=== PATIENT | female | born 1950 | race Caucasian/White ===

== ENCOUNTER 2020-10-03 11:35 | Emergency (ER) | payer OTHER ==
[~2020-10-03 11:35] MED LIST: ANASTROZOLE1 MG PO; ANTIVERT25 MG PO; ASCORBIC ACID500 MG PO; ASPIRIN325 MG PO; BENADRYL25 MG PO; CALCIUM 500-VI1 EACH PO; CELEXA20 MG PO; CLARITIN10 MG PO; COLESTID1 GM PO; COZAAR100 MG PO; COZAAR50 MG PO; DITROPAN5 MG PO; EPITOL200 MG PO; GLUCOTROL10 MG PO; HYDROCODONE-APA1 TAB PO; HYDROCORT TOP; ISOSORBIDE MONO30 MG PO; ISOSORBIDE MONO60 MG PO; KLOR-CON 1010 MEQ PO; LASIX40 MG PO; LEVAQUIN500 MG PO; LIPITOR80 MG PO; LOPRESSOR25 MG PO; NEURONTIN300 MG PO; NITROGLYCERIN0.4 MG SL; NORCO 10-325 T1 EACH PO; PEPCID AC20 MG PO; PHENERGAN25 M1 PO; PLAVIX75 MG PO; SENTRY SENIOR1 EAC2 PO; SYNTHROID75 MCG PO; TELMISARTAN40 MG PO; TOPAMAX50 MG PO; VESICARE10 MG PO; VITAMIN E400 UNI1 PO; ZINC TOP; ZOLOFT50 MG PO; ZYVOX600 MG PO; [UNRECOGNIZED DRUG - OTHER] TOP
[2020-10-03 13:40] LABS: INR 1.1 (0.9-1.2); PROTHROMBIN TIME 13.5 SECONDS (11.4-13.6); PTT 37.6 SECONDS (22.2-34.7)
[2020-10-03 13:41] LABS: BASOPHIL 1.1 % (0-2); EOSINOPHIL 2.9 % (0-7); HCT 29.4 % (37.0-47.0); HGB 8.5 g/dl (12.5-16.0); LYMPHOCYTE 18.1 % (15-48); MCH 22.1 pg (25.0-31.0); MCHC 28.9 g/dL (32.0-36.0); MCV 76.4 fL (78.0-100.0); MONOCYTE 13.8 % (0-12); MPV 11.1 fL (6.0-9.5); NEUTROPHIL 58.4 % (41-80); NRBC 0; PLT 314 K/uL (150-400); RBC 3.85 M/uL (4.20-5.40); RDW 22.5 % (11.5-14.0); WBC 9.1 K/uL (4.0-10.5)
[2020-10-03 13:51] LABS: ALBUMIN 2.9 g/dL (3.4-5.0); BILIRUBIN - TOTAL 0.2 mg/dL (0.2-1.0); BUN/CREAT RATIO (CALC) 39.3 RATIO; C-REACTIVE PROTEIN 5.8 mg/dL (<=0.90); CREATININE 0.28 mg/dL (0.51-0.95); GLOBULIN (CALCULATION) 3.6 g/dL; MAGNESIUM 1.9 mg/dL (1.8-2.4); POTASSIUM 3.8 mmol/L (3.5-5.1); TOTAL PROTEIN 6.5 g/dL (6.4-8.2)
[2020-10-03 13:59] LABS: LACTIC ACID 0.9 mmol/L (0.4-1.9)
[2020-10-03 15:22] LABS: BILIRUBIN NEGATIVE (NEGATIVE); BLOOD NEGATIVE Ery/uL (NEGATIVE); CLARITY CLEAR (CLEAR); COLOR YELLOW (YELLOW); GLUCOSE (U) NORMAL (NORMAL); LEUKOCYTES NEGATIVE Leu/uL (NEGATIVE); NITRITE NEGATIVE (NEGATIVE); PROTEIN NEGATIVE (NEGATIVE); SPECIFIC GRAVITY 1.015 (1.001-1.030); UROBILINOGEN 0.2 mg/dL (0.2-1.0)
[2020-10-03] MEDS ORDERED: CLEOCIN HCL300 MG PO (16:27)
[2020-10-03] MEDS ORDERED: CLEOCIN300 MG PO (16:55)
== END 2020-10-03 17:06 | disposition home or self-care (01) ==
LOC: FER 11:35
PROVIDERS: Emergency Medicine
DX: K11.5 Sialolithiasis (principal); M27.2 Inflammatory conditions of jaws; M17.12 Unilateral primary osteoarthritis, left knee; K12.2 Cellulitis and abscess of mouth; Z79.899 Other long term (current) drug therapy; Z79.82 Long term (current) use of aspirin; Z79.891 Long term (current) use of opiate analgesic
CPT/HCPCS: 36415; 70490; 71250; 73560; 80053; 81003; 83605; 83735; 83880; 84145; 85025; 85610; 85730; 86140; J7030

== ENCOUNTER 2020-10-11 11:53 | Emergency (ER) | payer MEDICARE ==
[~2020-10-11 11:53] MED LIST changes: +CLEOCIN HCL300 MG PO; +CLEOCIN300 MG PO
[2020-10-11 13:39] LABS: BASOPHIL 1.1 % (0-2); EOSINOPHIL 2.5 % (0-7); HCT 31.3 % (37.0-47.0); LYMPHOCYTE 17.2 % (15-48); MCH 21.6 pg (25.0-31.0); MCHC 28.8 g/dL (32.0-36.0); MCV 75.2 fL (78.0-100.0); MONOCYTE 17.3 % (0-12); MPV 10.7 fL (6.0-9.5); NEUTROPHIL 56.7 % (41-80); NRBC 0; PLT 356 K/uL (150-400); RBC 4.16 M/uL (4.20-5.40); RDW 21.9 % (11.5-14.0); WBC 11.7 K/uL (4.0-10.5)
[2020-10-11 14:14] LABS: BUN/CREAT RATIO (CALC) 43.3 RATIO; CREATININE 0.3 mg/dL (0.51-0.95)
== END 2020-10-11 15:46 | disposition home or self-care (01) ==
LOC: FER 11:53
PROVIDERS: Nurse Practitioner Family
DX: R22.1 Localized swelling, mass and lump, neck (principal); R22.0 Localized swelling, mass and lump, head; I10 Essential (primary) hypertension; E11.9 Type 2 diabetes mellitus without complications; Z88.0 Allergy status to penicillin; Z88.2 Allergy status to sulfonamides; Z88.5 Allergy status to narcotic agent; Z88.8 Allergy status to other drugs, medicaments and biological substances; Z91.041 Radiographic dye allergy status; Z91.040 Latex allergy status
CPT/HCPCS: 36415; 80048; 85025; 99283

== ENCOUNTER 2020-10-14 10:44 | Inpatient (IN) | payer MEDICARE, OTHER ==
[2020-10-14 11:37] LABS: BASOPHIL 1.2 % (0-2); EOSINOPHIL 2.2 % (0-7); LYMPHOCYTE 13.9 % (15-48); MCH 21.9 pg (25.0-31.0); MCV 75.4 fL (78.0-100.0); MONOCYTE 14.1 % (0-12); MPV 11.1 fL (6.0-9.5); NEUTROPHIL 63.3 % (41-80); NRBC 0; PLT 380 K/uL (150-400); RBC 4.11 M/uL (4.20-5.40); RDW 21.6 % (11.5-14.0); WBC 12.9 K/uL (4.0-10.5)
[2020-10-14 11:52] LABS: ALBUMIN 2.8 g/dL (3.4-5.0); BILIRUBIN - TOTAL 0.2 mg/dL (0.2-1.0); CREATININE 0.25 mg/dL (0.51-0.95); POTASSIUM 3.7 mmol/L (3.5-5.1); TOTAL PROTEIN 7.8 g/dL (6.4-8.2)
[2020-10-14] MEDS ORDERED: K-DUR20 MEQ PO (21:38)
[2020-10-14] MEDS ORDERED: GABAPENTIN600 MG PO (21:39)
[2020-10-14] MEDS ORDERED: ASPIRIN EC81 MG PO (21:41)
[2020-10-14] MEDS ORDERED: NORCO 5-325 TA1 EACH PO (21:41)
[2020-10-14] MEDS ORDERED: PLAVIX75 MG PO (21:42)
[2020-10-14] MEDS ORDERED: SYNTHROID75 MCG PO (21:43)
[2020-10-14] MEDS ORDERED: GLUCOTROL10 MG PO (21:43)
[2020-10-14] MEDS ORDERED: ISOSORBIDE MONO60 MG PO (21:45)
[2020-10-14] MEDS ORDERED: LIPITOR40 MG PO (21:45)
[2020-10-14] MEDS ORDERED: DITROPAN XL *OUT5 MG PO (21:46)
[2020-10-14] MEDS ORDERED: PEPCID AC20 MG PO (21:46)
[2020-10-14] MEDS ORDERED: MOBIC7.5 MG PO ×2 (21:47→21:49)
[2020-10-14] MEDS ORDERED: BENADRYL25 MG PO (21:49)
[2020-10-14] MEDS ORDERED: TOPROL XL 25MG25 MG PO (21:50)
[2020-10-14] MEDS ORDERED: LASIX40 MG PO (21:51)
[2020-10-14 23:15] LABS: MAGNESIUM 1.7 mg/dL (1.8-2.4); PHOSPHORUS 3.1 mg/dL (2.6-4.7)
--- NOTE | 2020-10-14 23:30 | NUR ---
2005 PT ADMITTD FROM THE ED VIA STRETCHER. PT ORIENTED TO CALL LIGHT AND ROOM.
[2020-10-15 04:39] LABS: BASOPHIL 1.4 % (0-2); EOSINOPHIL 1.6 % (0-7); HCT 29.2 % (37.0-47.0); HGB 8.6 g/dl (12.5-16.0); MCH 21.8 pg (25.0-31.0); MCHC 29.5 g/dL (32.0-36.0); MCV 74.1 fL (78.0-100.0); MPV 10.9 fL (6.0-9.5); NEUTROPHIL 65.7 % (41-80); NRBC 0; PLT 381 K/uL (150-400); RBC 3.94 M/uL (4.20-5.40); RDW 21.4 % (11.5-14.0); WBC 12.9 K/uL (4.0-10.5)
[2020-10-15 04:51] LABS: ALBUMIN 2.6 g/dL (3.4-5.0); BILIRUBIN - TOTAL 0.3 mg/dL (0.2-1.0); BUN/CREAT RATIO (CALC) 14.3 RATIO; CREATININE 0.28 mg/dL (0.51-0.95); GLOBULIN (CALCULATION) 4.3 g/dL; POTASSIUM 3.5 mmol/L (3.5-5.1); TOTAL PROTEIN 6.9 g/dL (6.4-8.2)
[2020-10-16 05:32] LABS: BASOPHIL 0.8 % (0-2); EOSINOPHIL 0.5 % (0-7); HCT 27.3 % (37.0-47.0); HGB 8.1 g/dl (12.5-16.0); MCHC 29.7 g/dL (32.0-36.0); MCV 74.2 fL (78.0-100.0); MPV 10.8 fL (6.0-9.5); NEUTROPHIL 71.1 % (41-80); NRBC 0; PLT 347 K/uL (150-400); RBC 3.68 M/uL (4.20-5.40); RDW 21.3 % (11.5-14.0); WBC 14.2 K/uL (4.0-10.5)
[2020-10-16 05:50] LABS: BUN/CREAT RATIO (CALC) 38.1 RATIO; CREATININE 0.21 mg/dL (0.51-0.95); POTASSIUM 3.8 mmol/L (3.5-5.1)
[2020-10-16] MEDS ORDERED: PLAVIX75 MG PO (09:00)
[2020-10-16] MEDS ORDERED: HYDROCODON-ACE1 EAC2 PO (09:00)
[2020-10-16] MEDS ORDERED: ASPIRIN EC81 MG PO (09:00)
[2020-10-16] MEDS ORDERED: GLUCOTROL10 MG PO (09:00)
[2020-10-16] MEDS ORDERED: SYNTHROID75 MCG PO (09:01)
[2020-10-16] MEDS ORDERED: LASIX40 MG PO (09:01)
[2020-10-16] MEDS ORDERED: LIPITOR40 MG PO (09:02)
[2020-10-16] MEDS ORDERED: PEPCID AC20 MG PO (09:02)
[2020-10-16] MEDS ORDERED: MOBIC7.5 MG PO (09:02)
[2020-10-16] MEDS ORDERED: BENADRYL25 M1 PO (09:03)
[2020-10-16] MEDS ORDERED: 3IN1 COMMODE (09:03)
--- NOTE | 2020-10-16 16:40 | NUR ---
1640 PATIENTS BEDSIDE GLUCOSE IS 438. DR WILKERSON NOTIFIED VIA TELEPHONE, ORDER PLACED FOR 30 UNITS OF REGULAR INSULIN THEN TO RECHECK AT BEDTIME.
[2020-10-17 06:13] LABS: BASOPHIL 1.9 % (0-2); EOSINOPHIL 3.4 % (0-7); HCT 30.2 % (37.0-47.0); HGB 8.9 g/dl (12.5-16.0); LYMPHOCYTE 23.2 % (15-48); MCH 22.1 pg (25.0-31.0); MCHC 29.5 g/dL (32.0-36.0); MCV 74.9 fL (78.0-100.0); MONOCYTE 13.8 % (0-12); MPV 10.5 fL (6.0-9.5); NRBC 0; PLT 372 K/uL (150-400); RBC 4.03 M/uL (4.20-5.40); RDW 21.5 % (11.5-14.0); WBC 10.7 K/uL (4.0-10.5)
[2020-10-17 06:30] LABS: BUN/CREAT RATIO (CALC) 18.5 RATIO; CREATININE 0.27 mg/dL (0.51-0.95); MAGNESIUM 1.6 mg/dL (1.8-2.4); POTASSIUM 3.5 mmol/L (3.5-5.1)
[2020-10-17 10:53] LABS: RETICULOCYTE COUNT 0.8 % (1.0-2.0)
[2020-10-17 11:15] LABS: FOLIC ACID (SERUM) 15.7 ng/mL (8.6-58.9)
--- NOTE | 2020-10-17 17:30 | NUR ---
1640 PATIENTS BG 52, PATIENT AWAKE AND ALERT, NO COMPLAINTS. GIVEN 2 ORANGE JUICES AND ROBERTO CARLOS CRACKERS. 1700 BG NOW 86, DR LONG NOTIFIED AND STATED HE WILL HOLD HER GLUCOTROL TOMORROW
[2020-10-18 05:51] LABS: BASOPHIL 2.1 % (0-2); EOSINOPHIL 5.3 % (0-7); HCT 29.4 % (37.0-47.0); HGB 8.6 g/dl (12.5-16.0); MCH 21.7 pg (25.0-31.0); MCHC 29.3 g/dL (32.0-36.0); MCV 74.2 fL (78.0-100.0); MONOCYTE 15.5 % (0-12); MPV 10.4 fL (6.0-9.5); NEUTROPHIL 53.7 % (41-80); NRBC 0; PLT 328 K/uL (150-400); RBC 3.96 M/uL (4.20-5.40); WBC 10.7 K/uL (4.0-10.5)
[2020-10-18 06:08] LABS: BUN/CREAT RATIO (CALC) 20.7 RATIO; CREATININE 0.29 mg/dL (0.51-0.95); MAGNESIUM 1.9 mg/dL (1.8-2.4); POTASSIUM 4.3 mmol/L (3.5-5.1)
[2020-10-19] MEDS ORDERED: CEFDINIR300 MG PO (10:35)
[2020-10-19] MEDS ORDERED: METRONIDAZOLE500 MG PO (10:35)
--- NOTE | 2020-10-19 10:53 | NUR ---
MET WITH PT. SHE REQUESTS TRANSPORTATIO BY [facility]. SHE ALSO REQUESTS [facility]. AFFLIATION EXPLAINED. TC TO GUERITA AT [facility]. IT IS BETWEEN THE SENIOR HOURS PT. WILL NOT HAVE TO PAY FOR TRANSPORTATION. PT. IS TO BE PICKED UP AT 12:30 P.M. ADVISED JEREMIAH KAUR. AND PT. PT. SIGNED CHOICE FORM.
== END 2020-10-19 12:35 | disposition home health service (06) | DRG 863 ==
LOC: FER 10:44 → FMS 19:36
PROVIDERS: Emergency Medicine; Internal Medicine; Nurse Practitioner; Oral & Maxillofacial Surgery; ADMIT Internal Medicine
PROC: 0J9100Z Drainage of Face Subcutaneous Tissue and Fascia with Drainage Device, Open Approach (ICD-10-PCS; principal; 2020-10-15 08:00)
PROC: 0W963ZX Drainage of Neck, Percutaneous Approach, Diagnostic (ICD-10-PCS; principal; 2020-10-15 08:00)
DX: T81.41XA Infection following a procedure, superficial incisional surgical site, initial encounter (principal); K12.2 Cellulitis and abscess of mouth; I69.354 Hemiplegia and hemiparesis following cerebral infarction affecting left non-dominant side; L03.221 Cellulitis of neck; E78.5 Hyperlipidemia, unspecified; I10 Essential (primary) hypertension; E11.9 Type 2 diabetes mellitus without complications; G89.29 Other chronic pain; Z20.822 Contact with and (suspected) exposure to COVID-19; F32.9 Major depressive disorder, single episode, unspecified; I25.10 Atherosclerotic heart disease of native coronary artery without angina pectoris; Z79.84 Long term (current) use of oral hypoglycemic drugs; Z79.899 Other long term (current) drug therapy; Z79.82 Long term (current) use of aspirin; Z79.01 Long term (current) use of anticoagulants; Z88.5 Allergy status to narcotic agent; Z88.0 Allergy status to penicillin; Z88.2 Allergy status to sulfonamides; Z88.6 Allergy status to analgesic agent; Z91.041 Radiographic dye allergy status; Z86.12 Personal history of poliomyelitis; Z90.49 Acquired absence of other specified parts of digestive tract; Z80.1 Family history of malignant neoplasm of trachea, bronchus and lung; Z83.3 Family history of diabetes mellitus; Z95.5 Presence of coronary angioplasty implant and graft; I25.2 Old myocardial infarction; G62.9 Polyneuropathy, unspecified; G14 Postpolio syndrome; Z85.3 Personal history of malignant neoplasm of breast; D64.9 Anemia, unspecified
CPT/HCPCS: 36415; 70491; 80048; 80053; 80202; 82607; 82746; 82962; 83036; 83540; 83550; 83605; 83735; 84100; 85025; 87070; 87075; 87077; 87205; 93005; 94010; C9113; G0463; J0692; J0780; J1170; J1650; J2405; J3370; J3475; J7030; J7050; J7120; Q9967; U0002

== ENCOUNTER 2020-12-19 10:25 | Inpatient (IN) | payer MEDICARE ==
[~2020-12-19] VITALS: Ht 157.5 cm; Wt 69.6 kg
[~2020-12-19 10:25] MED LIST changes: +3IN1 COMMODE; +ASPIRIN EC81 MG PO; +BENADRYL25 M1 PO; +CEFDINIR300 MG PO; +DITROPAN XL *OUT5 MG PO; +GABAPENTIN600 MG PO; +HYDROCODON-ACE1 EAC2 PO; +K-DUR20 MEQ PO; +LIPITOR40 MG PO; +METRONIDAZOLE500 MG PO; +MOBIC7.5 MG PO; +NORCO 5-325 TA1 EACH PO; +TOPROL XL 25MG25 MG PO
[2020-12-19 10:47] LABS: BASOPHIL 0.5 % (0-2); EOSINOPHIL 0.3 % (0-7); HCT 15.9 % (37.0-47.0); MCH 22.2 pg (25.0-31.0); MCHC 29.6 g/dL (32.0-36.0); MONOCYTE 14.7 % (0-12); NEUTROPHIL 72.8 % (41-80); NRBC 0.1; PLT 370 K/uL (150-400); RBC 2.12 M/uL (4.20-5.40); RDW 22.4 % (11.5-14.0)
[2020-12-19 10:52] LABS: INR 1.11 (0.9-1.2); PROTHROMBIN TIME 13.6 SECONDS (11.4-13.6)
[2020-12-19 11:00] LABS: HGB 4.7 g/dl (12.5-16.0); WBC 34.3 K/uL (4.0-10.5)
[2020-12-19 11:15] LABS: ALBUMIN 2.4 g/dL (3.4-5.0); BILIRUBIN - TOTAL 0.1 mg/dL (0.2-1.0); BUN/CREAT RATIO (CALC) 71.1 RATIO; CREATININE 0.45 mg/dL (0.51-0.95); POTASSIUM 4.4 mmol/L (3.5-5.1); TOTAL PROTEIN 5.4 g/dL (6.4-8.2)
[2020-12-19 11:23] LABS: LACTIC ACID 2.2 mmol/L (0.4-1.9)
[2020-12-19 11:45] LABS: BILIRUBIN NEGATIVE (NEGATIVE); BLOOD NEGATIVE Ery/uL (NEGATIVE); CLARITY CLEAR (CLEAR); COLOR YELLOW (YELLOW); GLUCOSE (U) NORMAL (NORMAL); LEUKOCYTES NEGATIVE Leu/uL (NEGATIVE); NITRITE NEGATIVE (NEGATIVE); PROTEIN NEGATIVE (NEGATIVE); UROBILINOGEN 0.2 mg/dL (0.2-1.0)
[2020-12-19] MEDS ORDERED: COZAAR50 MG PO (13:56)
[2020-12-19] MEDS ORDERED: ISOSORBIDE MONO60 MG PO (13:57)
[2020-12-19] MEDS ORDERED: GABAPENTIN600 MG PO (13:58)
[2020-12-19] MEDS ORDERED: NEURONTIN300 MG PO (13:58)
[2020-12-19] MEDS ORDERED: PEPCID AC20 MG PO (13:59)
[2020-12-19] MEDS ORDERED: BACLOFEN 10MG T10 MG PO (13:59)
--- NOTE | 2020-12-19 17:07 | NUR ---
165 PT BLOOD SUGAR IS 49, NOTIFIED DR WILKERSON NEW ORDER RECIEVED.
[2020-12-20 06:19] LABS: BASOPHIL 0.5 % (0-2); EOSINOPHIL 0.6 % (0-7); HCT 26.3 % (37.0-47.0); LYMPHOCYTE 5.2 % (15-48); MCH 26.1 pg (25.0-31.0); MCHC 31.6 g/dL (32.0-36.0); MONOCYTE 16.9 % (0-12); MPV 10.6 fL (6.0-9.5); NEUTROPHIL 71.1 % (41-80); NRBC 0.1; PLT 240 K/uL (150-400); RBC 3.18 M/uL (4.20-5.40); RDW 20.8 % (11.5-14.0); WBC 23.9 K/uL (4.0-10.5)
[2020-12-20 06:30] LABS: HGB 8.3 g/dl (12.5-16.0); MCV 82.7 fL (78.0-100.0)
[2020-12-20 06:56] LABS: CREATININE 0.32 mg/dL (0.51-0.95); MAGNESIUM 1.9 mg/dL (1.8-2.4)
--- NOTE | 2020-12-20 10:34 | NUR ---
Taken for EGD.
--- NOTE | 2020-12-20 10:46 | NUR ---
Patient triggered for nutrition assessment 2' MST score of 4. Patient presents with 3 day hx of poor appetite with abdominal cramping, melana. Currently NPO for GI studies. will await POC for nutritional recs. F/U when appropriate.
[2020-12-20 11:42] LABS: HCT 28.8 % (37.0-47.0)
--- NOTE | 2020-12-20 16:29 | NUR ---
12/20/20 Ms. Carvalho lives at home with her s.o. She has an electric wc, s. chair, and 3in1. [facility] recently discharged Ms. Stone and she has requested for [facility] to resume services. A referral was made via [employer]. - Ms. Carvalho receives home delivered meals. She is now using [employer] for transportation. - Ms. Carvalho reports her s.o.'s health to be declining. - She was educated to [facility] for homemaking and a bath aid.
--- NOTE | 2020-12-21 09:48 | NUR ---
12/21/20 Ms. Carvalho was transferred to [facility] on 12/20/20. [facility] was informed.
== END 2020-12-20 21:32 | disposition other institution (70) | DRG 377 ==
LOC: FER 10:25 → FTCU 11:18
PROVIDERS: Emergency Medicine; ADMIT Internal Medicine
DX: K92.1 Melena (principal); R57.1 Hypovolemic shock; D62 Acute posthemorrhagic anemia; D68.32 Hemorrhagic disorder due to extrinsic circulating anticoagulants; I69.354 Hemiplegia and hemiparesis following cerebral infarction affecting left non-dominant side; Z20.822 Contact with and (suspected) exposure to COVID-19; R77.8 Other specified abnormalities of plasma proteins; T45.525A Adverse effect of antithrombotic drugs, initial encounter; T39.015A Adverse effect of aspirin, initial encounter; T39.395A Adverse effect of other nonsteroidal anti-inflammatory drugs [NSAID], initial encounter; F43.10 Post-traumatic stress disorder, unspecified; F32.9 Major depressive disorder, single episode, unspecified; I10 Essential (primary) hypertension; I25.10 Atherosclerotic heart disease of native coronary artery without angina pectoris; E11.649 Type 2 diabetes mellitus with hypoglycemia without coma; Z95.5 Presence of coronary angioplasty implant and graft; Z90.710 Acquired absence of both cervix and uterus; Z86.12 Personal history of poliomyelitis; Z90.49 Acquired absence of other specified parts of digestive tract; Z90.89 Acquired absence of other organs; Z85.3 Personal history of malignant neoplasm of breast; Z92.21 Personal history of antineoplastic chemotherapy; Z92.3 Personal history of irradiation; Z79.82 Long term (current) use of aspirin; Z79.02 Long term (current) use of antithrombotics/antiplatelets; Z79.899 Other long term (current) drug therapy; Z91.041 Radiographic dye allergy status; Z88.0 Allergy status to penicillin; Z88.6 Allergy status to analgesic agent; Z88.2 Allergy status to sulfonamides; Z88.5 Allergy status to narcotic agent; Z88.8 Allergy status to other drugs, medicaments and biological substances; Z91.040 Latex allergy status
CPT/HCPCS: 36415; 36430; 71045; 80048; 80053; 81003; 82962; 83605; 83690; 83735; 84443; 84484; 85014; 85018; 85025; 85610; 86850; 86900; 86901; 86922; 93005; 96374; C9113; J0692; J1956; J2405; J2916; J7030; J7040; J7050; J7120; P9016; U0002

== ENCOUNTER 2021-02-20 08:17 | Inpatient (IN) | payer MEDICARE ==
[~2021-02-20] VITALS: Ht 157.5 cm; Wt 64.5 kg
[~2021-02-20 08:17] MED LIST changes: +BACLOFEN 10MG T10 MG PO
[2021-02-20 09:25] LABS: ALBUMIN 2.2 g/dL (3.4-5.0); BILIRUBIN - TOTAL 0.4 mg/dL (0.2-1.0); BUN/CREAT RATIO (CALC) 91.8 RATIO; CREATININE 0.49 mg/dL (0.51-0.95); GLOBULIN (CALCULATION) 4.3 g/dL; POTASSIUM 3.3 mmol/L (3.5-5.1); TOTAL PROTEIN 6.5 g/dL (6.4-8.2)
[2021-02-20 09:54] LABS: EOSINOPHIL 2.2 & (0-7); HCT 29.5 % (37.0-47.0); HGB 8.7 g/dl (12.5-16.0); LYMPHOCYTE 4.5 % (15-48); MCH 23.4 pg (25.0-31.0); MCHC 29.5 g/dL (32.0-36.0); MCV 79.3 fL (78.0-100.0); MONOCYTE 12.1 % (0-12); MPV 10.7 fL (6.0-9.5); NEUTROPHIL 71.4 % (41-80); PLT 298 K/uL (150-400); RBC 3.72 M/uL (4.20-5.40); RDW 19.4 % (11.5-14.0); WBC 29.04 K/uL (4.0-10.5)
[2021-02-20 11:09] LABS: LACTIC ACID 1.6 mmol/L (0.4-1.9)
[2021-02-20 11:10] LABS: BILIRUBIN NEGATIVE (NEGATIVE); BLOOD NEGATIVE Ery/uL (NEGATIVE); CLARITY CLEAR (CLEAR); COLOR YELLOW (YELLOW); GLUCOSE (U) NORMAL (NORMAL); LEUKOCYTES NEGATIVE Leu/uL (NEGATIVE); NITRITE NEGATIVE (NEGATIVE); PROTEIN NEGATIVE (NEGATIVE); SPECIFIC GRAVITY 1.025 (1.001-1.030); UROBILINOGEN 0.2 mg/dL (0.2-1.0)
[2021-02-20] MEDS ORDERED: ASPIRIN EC81 MG PO (17:51)
[2021-02-20] MEDS ORDERED: PLAVIX75 MG PO (17:52)
[2021-02-20] MEDS ORDERED: LASIX40 MG PO (17:53)
[2021-02-20] MEDS ORDERED: TOPROL XL 25MG25 MG PO (17:53)
[2021-02-20] MEDS ORDERED: PEPCID AC20 MG PO (17:54)
[2021-02-20] MEDS ORDERED: NITROQUIK SL0.4 MG SL (17:55)
[2021-02-21 08:21] LABS: ALBUMIN 1.8 g/dL (3.4-5.0); BILIRUBIN - TOTAL 0.3 mg/dL (0.2-1.0); CREATININE 0.25 mg/dL (0.51-0.95); GLOBULIN (CALCULATION) 3.6 g/dL; POTASSIUM 3.3 mmol/L (3.5-5.1); TOTAL PROTEIN 5.4 g/dL (6.4-8.2)
[2021-02-21] MEDS ORDERED: MIRALAX17 GM PO (08:32)
[2021-02-21 08:43] LABS: EOSINOPHIL 5.4 % (0-7); HCT 27.8 % (37.0-47.0); LYMPHOCYTE 8.9 % (15-48); MCH 23.2 pg (25.0-31.0); MCHC 28.8 g/dL (32.0-36.0); MCV 80.6 fL (78.0-100.0); MONOCYTE 22.7 % (0-12); MPV 11.5 fL (6.0-9.5); NEUTROPHIL 59.8 % (41-80); NRBC 0; PLT 247 K/uL (150-400); RBC 3.45 M/uL (4.20-5.40); RDW 19.5 % (11.5-14.0); WBC 13.4 K/uL (4.0-10.5)
[2021-02-22 05:51] LABS: BASOPHIL 0.8 % (0-2); EOSINOPHIL 5.5 % (0-7); HGB 7.5 g/dl (12.5-16.0); LYMPHOCYTE 9.2 % (15-48); MCH 23.1 pg (25.0-31.0); MCHC 28.8 g/dL (32.0-36.0); MCV 80.2 fL (78.0-100.0); MONOCYTE 27.6 % (0-12); MPV 11.2 fL (6.0-9.5); NEUTROPHIL 55.7 % (41-80); NRBC 0; PLT 257 K/uL (150-400); RBC 3.24 M/uL (4.20-5.40); RDW 19.5 % (11.5-14.0); WBC 13.4 K/uL (4.0-10.5)
[2021-02-22 06:01] LABS: BUN/CREAT RATIO (CALC) 41.7 RATIO; CREATININE 0.24 mg/dL (0.51-0.95); POTASSIUM 3.5 mmol/L (3.5-5.1)
--- NOTE | 2021-02-22 06:21 | NUR ---
CALL RECEIVED FROM [facility] [phone], Don JAVIER APRN NOTIFIED.
[2021-02-23 08:20] LABS: BASOPHIL 1.2 % (0-2); EOSINOPHIL 6.1 % (0-7); HCT 27.1 % (37.0-47.0); HGB 7.9 g/dl (12.5-16.0); MCH 23.1 pg (25.0-31.0); MCHC 29.2 g/dL (32.0-36.0); MCV 79.2 fL (78.0-100.0); MPV 10.9 fL (6.0-9.5); NEUTROPHIL 53.1 % (41-80); PLT 262 K/uL (150-400); RBC 3.42 M/uL (4.20-5.40); RDW 19.5 % (11.5-14.0); WBC 11.4 K/uL (4.0-10.5)
[2021-02-23 08:23] LABS: MONOCYTE 26.9 % (0-12)
[2021-02-23 08:52] LABS: CREATININE 0.2 mg/dL (0.51-0.95); MAGNESIUM 1.3 mg/dL (1.8-2.4); POTASSIUM 2.8 mmol/L (3.5-5.1)
[2021-02-23 08:59] LABS: BAND 19 % (0-10); EOSINOPHIL(M) 2 % (0-7); LYMPHOCYTE(M) 12 % (15-48); MONOCYTE(M) 13 % (0-12); NEUTROPHILS(M) 54 % (41-80); TOTAL CELL COUNT 100
[2021-02-23 09:00] LABS: NRBC 0
[2021-02-23 09:01] LABS: ACANTHOCYTES (THORN CELLS) RARE; ANISOCYTOSIS SLIGHT; MICROCYTOSIS SLIGHT; PLATELET ESTIMATE NORMAL; POIKILOCYTOSIS SLIGHT
[2021-02-23 09:05] LABS: PLATELET MORPHOLOGY NORMAL
--- NOTE | 2021-02-23 16:09 | NUR ---
02/23/21 Ms. Carvalho lives at home with her s.o. She is followed by [facility] . [facility] was notified of anticipated discharge for 02/24. Ms. Carvalho has an electric wc, s. chair, and 3in1. She use [employer] for transportation. - Ms. Carvalho requested assistance to determine the best Medicare plan. She was referred to [facility] for assistance.
[2021-02-24 07:31] LABS: BASOPHIL 0.9 % (0-2); EOSINOPHIL 4.6 % (0-7); HCT 35.4 % (37.0-47.0); MCH 25.2 pg (25.0-31.0); MCHC 31.6 g/dL (32.0-36.0); MCV 79.6 fL (78.0-100.0); MPV 11.5 fL (6.0-9.5); NEUTROPHIL 50.3 % (41-80); NRBC 0; PLT 289 K/uL (150-400); RBC 4.45 M/uL (4.20-5.40); RDW 18.7 % (11.5-14.0); WBC 12.5 K/uL (4.0-10.5)
[2021-02-24 07:41] LABS: CREATININE 0.25 mg/dL (0.51-0.95); MAGNESIUM 1.8 mg/dL (1.8-2.4); POTASSIUM 2.6 mmol/L (3.5-5.1)
[2021-02-24 08:14] LABS: HGB 11.2 g/dl (12.5-16.0); LYMPHOCYTE 11.1 % (15-48)
[2021-02-24 18:12] LABS: IRON % SATURATION 30.3 %SAT (20-50)
[2021-02-25 03:58] LABS: EOSINOPHIL 6.1 % (0-7); HGB 11.2 g/dl (12.5-16.0); LYMPHOCYTE 15.6 % (15-48); MCH 24.9 pg (25.0-31.0); MCHC 31.1 g/dL (32.0-36.0); MCV 80.2 fL (78.0-100.0); MPV 10.8 fL (6.0-9.5); NEUTROPHIL 43.9 % (41-80); NRBC 0; PLT 271 K/uL (150-400); RBC 4.49 M/uL (4.20-5.40); RDW 19.7 % (11.5-14.0); WBC 11.4 K/uL (4.0-10.5)
[2021-02-25 04:25] LABS: BUN/CREAT RATIO (CALC) 14.7 RATIO; CREATININE 0.34 mg/dL (0.51-0.95); MAGNESIUM 1.5 mg/dL (1.8-2.4)
[2021-02-25 04:40] LABS: POTASSIUM 4.2 mmol/L (3.5-5.1)
[2021-02-26 06:33] LABS: CREATININE 0.25 mg/dL (0.51-0.95); MAGNESIUM 1.4 mg/dL (1.8-2.4); POTASSIUM 3.5 mmol/L (3.5-5.1)
[2021-02-27 06:23] LABS: CREATININE 0.3 mg/dL (0.51-0.95); POTASSIUM 4.9 mmol/L (3.5-5.1)
[2021-02-27 06:25] LABS: MAGNESIUM 2.4 mg/dL (1.8-2.4)
[2021-02-27 07:37] LABS: BASOPHIL 2.6 % (0-2); EOSINOPHIL 13.5 % (0-7); HCT 38.3 % (37.0-47.0); HGB 11.3 g/dl (12.5-16.0); LYMPHOCYTE 26.4 % (15-48); MCH 24.9 pg (25.0-31.0); MCHC 29.5 g/dL (32.0-36.0); MCV 84.4 fL (78.0-100.0); MONOCYTE 19.5 % (0-12); MPV 11.4 fL (6.0-9.5); NEUTROPHIL 33.8 % (41-80); NRBC 0; PLT 285 K/uL (150-400); RBC 4.54 M/uL (4.20-5.40); RDW 21.1 % (11.5-14.0); WBC 8.1 K/uL (4.0-10.5)
[2021-02-28 09:15] LABS: CREATININE 0.25 mg/dL (0.51-0.95); POTASSIUM 4.8 mmol/L (3.5-5.1)
--- NOTE | 2021-02-28 09:29 | NUR ---
02/28 [facility] will accept Ms. Carvalho pending insurance approval.
--- NOTE | 2021-03-02 15:20 | NUR ---
03/02/21 Charito with [facility], ext. [phone] gave authorization for admission today to [facility]; auth # [id number] klevel #Lina Byrne at [facility] reports plans to admit patient today. Please call report to: [phone] and ask for the Leslye velasquez RN. Fax DS to: [phone]. Report given to Anitha. Patient informed. An unsuccessful attempt was made to reach, Gloria Mackenzie, daughter; voicemail was full. - Pt meets criteria for EMS.
[2021-03-02] MEDS ORDERED: NORCO 5-325 TA1 EACH PO ×2 (16:36→17:06)
== END 2021-03-02 19:16 | DRG 811 ==
LOC: FER 08:17 → FMS 15:13
PROVIDERS: Emergency Medicine; Internal Medicine; ADMIT Internal Medicine
PROC: 30233N1 Transfusion of Nonautologous Red Blood Cells into Peripheral Vein, Percutaneous Approach (ICD-10-PCS; principal; 2021-02-23)
DX: D64.9 Anemia, unspecified (principal); I21.A1 Myocardial infarction type 2; B37.0 Candidal stomatitis; I69.354 Hemiplegia and hemiparesis following cerebral infarction affecting left non-dominant side; Z20.822 Contact with and (suspected) exposure to COVID-19; I25.10 Atherosclerotic heart disease of native coronary artery without angina pectoris; E87.6 Hypokalemia; E83.42 Hypomagnesemia; I10 Essential (primary) hypertension; F32.9 Major depressive disorder, single episode, unspecified; E11.42 Type 2 diabetes mellitus with diabetic polyneuropathy; K59.00 Constipation, unspecified; G89.29 Other chronic pain; Z88.0 Allergy status to penicillin; Z88.2 Allergy status to sulfonamides; Z88.5 Allergy status to narcotic agent; Z88.6 Allergy status to analgesic agent; Z91.040 Latex allergy status; Z88.8 Allergy status to other drugs, medicaments and biological substances; Z79.82 Long term (current) use of aspirin; Z79.02 Long term (current) use of antithrombotics/antiplatelets; Z79.890 Hormone replacement therapy; Z79.899 Other long term (current) drug therapy; Z95.5 Presence of coronary angioplasty implant and graft; Z86.12 Personal history of poliomyelitis; Z90.49 Acquired absence of other specified parts of digestive tract; Z90.89 Acquired absence of other organs; Z98.890 Other specified postprocedural states; Z91.041 Radiographic dye allergy status
CPT/HCPCS: 36415; 36430; 71045; 74022; 80048; 80053; 81003; 82607; 82962; 83540; 83550; 83605; 83690; 83735; 83880; 84145; 84484; 85025; 86850; 86880; 86900; 86901; 86906; 86922; 87040; 87088; 94010; 97110; 97163; 97166; 97530-GP; 97535; J1650; J1956; J2405; J3475; J7030; P9016; U0002